=== PATIENT | male | born 1995 | race American Indian/Alaskan Native ===

== ENCOUNTER 2017-05-27 01:40 | Emergency (ER) | payer SELFPAY ==
[2017-05-27] MEDS ORDERED: ANCEF/NS 1 GM/50 ML 1 GM/50 ML BAG IV ONE ×2 (02:00→04:43)
[2017-05-27] MEDS ORDERED: BOOSTRIX IM ONE ×2 (02:00→04:42)
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
[2017-05-27] MEDS ORDERED: NACL 0.9% IR ONE (04:16)
[2017-05-27] MEDS ORDERED: TYLENOL PO ONE ×2 (04:16→04:40)
[2017-05-27] MEDS ORDERED: TRIPLE ANTIBIOTIC TP ONE (04:18)
[2017-05-27] MEDS ORDERED: TYLENOL ONE (04:35)
[2017-05-27 06:10] VITALS: BP 120/73
== END 2017-05-27 06:10 | disposition home or self-care (01) ==
LOC: ED 01:40
DX: S01.01XA Laceration without foreign body of scalp, initial encounter (principal); M79.604 Pain in right leg; F17.210 Nicotine dependence, cigarettes, uncomplicated; F12.10 Cannabis abuse, uncomplicated; G44.309 Post-traumatic headache, unspecified, not intractable; Y08.89XA Assault by other specified means, initial encounter; Y93.89 Activity, other specified; Y92.89 Other specified places as the place of occurrence of the external cause; Y99.8 Other external cause status
CPT/HCPCS: 12001; 70450; 90471; 90715; 96365; 99284; J0690; A6250

== ENCOUNTER 2017-06-02 14:36 | Emergency (ER) | payer SELFPAY ==
[2017-06-02 15:29] VITALS: BP 113/62
--- NOTE | 2017-06-02 15:46 | Emergency Department Report ---
Suture/Staple Removal - [facility] Chief Complaint: Laceration/Recheck/Suture Stated Complaint: STAPLE REMOVAL Time Seen by Provider: 06/02/17 15:41 When Sutures or Yudith Placed: 8-10 Days Ago Wound Location: scalp ED Review of Systems ROS: Stated complaint: STAPLE REMOVAL Other details as noted in HPI Constitutional: denies: chills, fever Eyes: denies: eye pain, eye discharge, vision change ENT: denies: ear pain, throat pain Respiratory: denies: cough, shortness of breath, wheezing Cardiovascular: denies: chest pain, palpitations Endocrine: no symptoms reported Gastrointestinal: denies: abdominal pain, nausea, diarrhea Genitourinary: denies: urgency, dysuria Musculoskeletal: denies: back pain, joint swelling, arthralgia Skin: denies: rash, lesions Neurological: denies: headache, weakness, paresthesias Psychiatric: denies: anxiety, depression Hematological/Lymphatic: denies: easy bleeding, easy bruising ED Past Medical Hx - Past Medical History Previous Medical History?: Yes Additional medical history: Thyroid - Surgical History Past Surgical History?: Yes Additional Surgical History: head - Social History Smoking Status: Unknown if ever smoked Substance Use Type: None - Medications Home Medications: Home Medications Medication Instructions Recorded Confirmed Last Taken Type Acetaminophen [Non-Aspirin Pain 500 mg PO Q8H PRN #15 tablet 05/27/17 Unknown Rx Relief] Suture Removal Exam - Exam General: Vital signs noted. No distress. Alert and acting appropriately. Wound: No Pathologic Erythema, No Tenderness, No Drainage, No Pus, No Wound Dehiscence Other Systems: All other systems reviewed and are unremarkable. ED Course Vital Signs 06/02/17 15:24 Temperature 98.8 F Pulse Rate 66 Respiratory 18 Rate Blood Pressure 113/62 O2 Sat by Pulse 98 Oximetry ED Recheck MDM - Medical Decision Making 21-year-old male presents with staple remover ED course: 7 yudith removed from scalp occipital region. Patient tolerated procedure well. Nose no bleeding or active drainage or wound dehiscence. Vital signs are stable patient is no acute distress Discuss acute one care instructions the patient. Critical care attestation.: If time is entered above; I have spent that time in minutes in the direct care of this critically ill patient, excluding procedure time. ED Disposition Clinical Impression: Encounter for staple removal Disposition: TO HOME OR SELFCARE Is pt being admited?: No Does the pt Need Aspirin: No Condition: Stable Instructions: Acute Wound Care (ED) Referrals: [facility] [place] [Outside] - 3-5 Days [facility] [Outside] - 3-5 Days Forms: Work/School Release Form(ED) Time of Disposition: 15:49
== END 2017-06-02 15:53 | disposition home or self-care (01) ==
LOC: ED 14:36
DX: Z48.02 Encounter for removal of sutures (principal)